=== PATIENT | female | born 1940 | race Caucasian/White ===

== ENCOUNTER → 2016-12-03 | Outpatient (CLI) | payer MEDICARE ==
[~2016-12-03] MED LIST: ACTOPLUS MET 501 TAB PO; ACTOPLUS MET 851 TAB PO; ASPIRIN 81MG TA81 MG PO; ASTELIN NA137 MCG/BO; HYDROCHLOROTHIA25 M1 PO; LEXAPRO 10 MG T10 MG PO; LISINOPRIL 20MG20 MG PO; LISINOPRIL10 MG PO; METOPROLOL TART50 MG PO; METOPROLOL25 MG PO; PRAVASTATIN 40M40 MG PO; PROVENTIL0.09 MG/A1 IH; SALMETEROL-F28 PUFFS IN; SYNTHROID 0.00.05 MG PO
[2016-12-03 11:45] LABS: HEMOGLOBIN 12.1 g/dL (12.2-16.2); LYMPH # 1.1 K/mm3 (0.7-4.5)
[2016-12-03 12:35] LABS: BUN 21 mg/dL (7-18)
[2016-12-03 12:37] LABS: GFR (ESTIMATED) 40 ML/MIN (59-)
== END ==
LOC: LAB 11:21
PROVIDERS: Nurse Practitioner Family
DX: E11.69 Type 2 diabetes mellitus with other specified complication (principal); E78.5 Hyperlipidemia, unspecified; E89.0 Postprocedural hypothyroidism; I25.10 Atherosclerotic heart disease of native coronary artery without angina pectoris

== ENCOUNTER → 2017-07-25 | Outpatient (CLI) | payer MEDICARE ==
[2017-07-25 14:24] LABS: HEMOGLOBIN 11.7 g/dL (12.2-16.2); LYMPH # 1.4 K/mm3 (0.7-4.5); LYMPH % 25.1 % (10-50.0)
[2017-07-25 16:25] LABS: BUN 22 mg/dL (7-18)
[2017-07-25 16:34] LABS: GFR (ESTIMATED) 54 ML/MIN (59-)
[2017-07-25 19:16] LABS: NEUTROPHILS 80 % (42-76)
[2017-07-26 08:40] LABS: Iron 69 ug/dL (27-139); Iron Saturation 18 % (15-55); UIBC 317 ug/dL (118-369); Vitamin B12 830 pg/mL (211-946)
== END ==
LOC: LAB 13:54
PROVIDERS: Internal Medicine Adolescent Medicine
DX: E53.8 Deficiency of other specified B group vitamins (principal); D64.9 Anemia, unspecified

== ENCOUNTER → 2017-08-15 | Outpatient (CLI) | payer MEDICARE ==
[2017-08-15 11:16] LABS: BUN 25 mg/dL (7-18); GFR (ESTIMATED) 48 ML/MIN (59-)
--- NOTE | 2017-08-15 15:26 | RADIOLOGY REPORT PS360 ---
CT CHEST W/WO CONTRAST HISTORY: DECREASED LUNG SOUNDS,SHORTNESS OF BREATH,HIATAL HERNIA ORDERING PHYSICIAN: Yong Awad MD PATIENT AGE: 77 years TECHNIQUE: Helical acquisition obtained without and with 75 mL's of Isovue-370. .. Axial, sagittal, and coronal reformatted images are generated and reviewed. COMPARISON: None FINDINGS: No mediastinal or hilar mass or adenopathy. Dense coronary artery calcifications are present consistent with coronary artery disease. No evidence of aortic aneurysm. There is a large hiatal hernia containing at least two thirds of the stomach. There are multiple bilateral noncalcified pulmonary nodules with at least 2 nodules in the right upper lobe measuring up to 6 mm in 3 nodules in the right lower lobe measuring 7 mm. Noncalcified 3 and 4 mm nodules present in the left lower lobe and noncalcified 4 mm nodule left lower lobe superiorly. Calcified nodules and calcified nodes are also present. No effusions or infiltrates. Upper abdominal images show several duodenal diverticula injury completely imaged involving the descending portion of the duodenum. Some of these are probably prominent measuring up to 6 cm and may be better evaluated with upper GI clinically warranted. IMPRESSION: 1. Large hiatal hernia. 2. 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 Upper GI may be of further value to better characterize. 3. Noncalcified bilateral pulmonary nodules measuring up to [address] follow-up suggested to confirm stability. 4. Old granulomatous disease HEART: Unremarkable. Normal heart size. No significant pericardial effusion. MEDIASTINAL AND HILAR STRUCTURES: No mediastinal or hilar mass evident. No dominant adenopathy. PULMONARY ARTERIES: No pulmonary embolus evident. AORTA: No acute finding. No thoracic aortic aneurysm or dissection evident LUNGS: Unremarkable. No mass or consolidation. PLEURAL SPACES: No significant effusion. No evidence of pneumothorax. BONY STRUCTURES: No acute bony abnormalities apparent LYMPH NODES: No enlarged lymph nodes evident UPPER ABDOMEN: Unremarkable ADDITIONAL FINDINGS: No other significant abnormalities IMPRESSION:
== END ==
LOC: RAD 08-08 13:00
PROVIDERS: Internal Medicine Adolescent Medicine
DX: R06.02 Shortness of breath (principal); R06.89 Other abnormalities of breathing; K44.9 Diaphragmatic hernia without obstruction or gangrene
CPT/HCPCS: Q9967

== ENCOUNTER → 2017-09-08 | Outpatient (CLI) | payer MEDICARE | LOC: RT 15:36 | DX: R10.13 Epigastric pain (principal); Z01.818 Encounter for other preprocedural examination ==

== ENCOUNTER → 2017-10-02 | Outpatient (CLI) | payer MEDICARE ==
--- NOTE | 2017-10-05 08:59 | RADIOLOGY REPORT PS360 ---
DIG MAMM-SCREEN EUN W/CAD CAD Screening COMPARISON: Digital mammograms 08/24/2012 and 02/26/2016 INDICATION: There is no personal or family history of breast cancer. There is been previous biopsy right breast for benign disease. TECHNIQUE: Standard CC and MLO images were obtained. R2 CAD reviewed. FINDINGS: The breasts are composed primarily of fat with minimal fibroglandular densities in the subareolar regions of each breast. Again noted is a biopsy clip right breast and a mole marker right breast just above the nipple. There is minimal arterial calcification in each breast. There are couple benign-appearing calcination ceased breast as well. There is no suspicious lesion and no suspicious microcalcifications. IMPRESSION: Fibrofatty parenchyma with no suspicious lesion seen recommend yearly follow-up BI-RADS CATEGORY: 2_Benign RECOMMENDED FOLLOWUP: 12M 12 MONTH FOLLOW-UP (A letter has been sent to the patient regarding results of the study.)
== END ==
LOC: RAD 09-20 16:00
DX: Z12.31 Encounter for screening mammogram for malignant neoplasm of breast (principal)
CPT/HCPCS: G0202

== ENCOUNTER → 2017-10-17 | Outpatient (CLI) | payer MEDICARE ==
--- NOTE | 2017-10-17 14:47 | RADIOLOGY REPORT PS360 ---
UGI SERIES W/ AIR HISTORY: LARGE HERNIA, EPIGASTRIC PAIN, Hancock's esophagus ORDERING PHYSICIAN: Hadley Begum MD PATIENT AGE: 77 years COMPARISON: CT scan of 08/15/2017 FINDINGS: There is a large hiatal hernia with intrathoracic stomach. Air contrast views of the distal esophagus are unremarkable with no evidence of annular constricting lesion or filling defect. No obvious mucosal abnormality is are apparent. No gastric mass. No ulcer of the stomach or duodenum. The pylorus is at the level of the diaphragm in the duodenal bulb is below the diaphragm. GE reflux was noted during the exam. There are multiple diverticula projecting off of the descending and transverse portion of the duodenum. No evidence of proximal small bowel obstruction. FLUOROSCOPY TIME : 2 minutes and 24 seconds. IMPRESSION: 1. Large hiatal hernia with intrathoracic stomach with GE reflux. 2. Multiple duodenal diverticula. 3. Otherwise negative upper GI
== END ==
LOC: RAD 10-16 11:00
DX: K44.9 Diaphragmatic hernia without obstruction or gangrene (principal); R10.13 Epigastric pain